=== PATIENT | male | born 1950 | race Caucasian/White ===

== ENCOUNTER → 2020-04-22 | Outpatient (CLI) | payer MEDICARE, MEDICAID | END | disposition home or self-care (01) | LOC: WOUND CARE 10:31 | PROVIDERS: ATTEND Nurse Practitioner | DX: S81.801D Unspecified open wound, right lower leg, subsequent encounter (principal); L97.311 Non-pressure chronic ulcer of right ankle limited to breakdown of skin; I10 Essential (primary) hypertension; E78.5 Hyperlipidemia, unspecified; Z86.010 Personal history of colon polyps; X58.XXXD Exposure to other specified factors, subsequent encounter | CPT/HCPCS: 17250; G0463 ==